=== PATIENT | male | born 1960 | race Caucasian/White ===

== ENCOUNTER → 2017-02-11 10:08 | Outpatient (CLI) | payer MEDICARE ==
--- NOTE | 2017-02-22 12:15 | EC ---
PATIENT:SHELBI COPELAND DATE OF SERVICE: 02/11/17 SEX: M MEDICAL RECORD: [id number] DATE OF : 64 LOCATION:[facility] AGE OF PATIENT: 56 ADMISSION DATE: 02/11/17 REFERRING PHYSICIAN: INTERPRETING PHYSICIAN: SINGH ARAIZA MD ECHOCARDIOGRAM REPORT ECHO CHARGES 4 ECHO COMPLETE CLINICAL DIAGNOSIS: HTN/EDEMA ECHOCARDIOGRAPHIC MEASUREMENTS (adult normal given) AC root (d.<3.7cm) 3.3 cm LV Septum d (<1.2 cm> 1.8 cm Valve Excursion 1.4 cm LV Septum (systole) 2.5 cm Left Atria (s.<4.0cm> 3.6 cm LVPW d(<1.2cm) 1.7 cm RV (d.<2.3cm) 2.5 cm LVPW (sytole) 2.2 cm LV diastole(<5.6CM) 4.6 cm MV E-F(>70mm/sec) cm LV systole 2.3 cm LVOT Diameter 2.3 cm MV exc.(>10mm) cm Est.ejection fraction (50-75%) % Pericardial Effusion N DOPPLER: LVIT cm/sec A 113 cm/sec E 87.0 cm/sec LA cm/sec RVSP 29.3 mmHg LVOT 140 cm/sec AOP1/2T m/s Asc. Ao 159 cm/sec RVOT 146 cm/sec RA cm/sec PA 118 cm/sec AV Gradient Peak 10.2 mmHg AV Mean 5.6 mmHg AV Area 3.7 cm MV Gradient Peak 4.6 mmHg MV Mean 2.0 mmHg MV Area cm COMMENTS: Casket Inspector: David OLIVEROE Surveyor Instrument Assistant: Chente Loja TAPE# PACS DATE OF SERVICE: 02/11/2017 FINDINGS: 1. Left ventricular chamber size is within normal limits. Left ventricular systolic function is normal. Overall ejection fraction 55%-60%. 2. Left atrium, right atrium, and right ventricular chamber sizes are within normal limits. 3. Valvular structures have normal structure and motion. 4. Doppler interrogation reveals only mild mitral regurgitation, fobnv-ne-zqqh tricuspid regurgitation. No other valvular insufficiency or stenosis. ECHOCARDIOGRAM REPORT [id number] SHELBI COPELAND Pulmonary systolic pressure is normal at 29 mmHg. 5. No evidence of pericardial effusion or left ventricular thrombus. TRANSINT:[id number] Voice Confirmation ID: [id number] DOCUMENT ID: [id number] SINGH ARAIZA MD at 1215 CC: ALICIA AYALA DO [id number] DICTATION DATE: 02/16/17 1147 KNOWLEDGE MANAGEMENT CONSULTANT: 02/16/17 1255 DEP CLI 02/11/17 [place] [id number] [place] [id number]
== END | disposition home or self-care (01) ==
LOC: D.ECHO 10:08
DX: I10 Essential (primary) hypertension (principal); R60.9 Edema, unspecified

== ENCOUNTER → 2017-09-20 08:04 | Outpatient (CLI) | payer MEDICARE | END | disposition home or self-care (01) | LOC: D.US 08:04 | DX: D63.1 Anemia in chronic kidney disease (principal); I12.9 Hypertensive chronic kidney disease with stage 1 through stage 4 chronic kidney disease, or unspecified chronic kidney disease; N18.4 Chronic kidney disease, stage 4 (severe) ==

== ENCOUNTER → 2017-10-03 14:29 | Outpatient (CLI) | payer MEDICARE | END | disposition home or self-care (01) | LOC: D.CT 14:29 | DX: N28.1 Cyst of kidney, acquired (principal) ==

== ENCOUNTER → 2017-10-07 09:17 | Outpatient (CLI) | payer MEDICARE ==
--- NOTE | ~2017-10-07 | EC ---
PATIENT:SHELBI COPELAND DATE OF SERVICE: 10/07/17 SEX: M MEDICAL RECORD: [id number] DATE OF : 64 LOCATION[facility] AGE OF PATIENT: 57 ADMISSION DATE: 10/07/17 REFERRING PHYSICIAN: INTERPRETING PHYSICIAN: SINGH JEAN MD ECHOCARDIOGRAM REPORT ECHO CHARGES 4 ECHO COMPLETE Date: 10/07 CLINICAL DIAGNOSIS: PERICARDIAL EFFUSION ECHOCARDIOGRAPHIC MEASUREMENTS (adult normal given) AC root (d.<3.7cm) 3.7 cm LV Septum d (<1.2 cm> 2.0 cm Valve Excursion 2.5 cm LV Septum (systole) 2.7 cm Left Atria (s.<4.0cm> 4.8 cm LVPW d(<1.2cm) 1.6 cm RV (d.<2.3cm) 2.5 cm LVPW (sytole) 2.5 cm LV diastole(<5.6CM) 5.1 cm MV E-F(>70mm/sec) cm LV systole 2.2 cm LVOT Diameter 2.3 cm MV exc.(>10mm) cm Est.ejection fraction (50-75%) % DOPPLER: LVIT cm/sec A 80.0 cm/sec E 101 cm/sec LA cm/sec RVSP 35.2 mmHg LVOT 136 cm/sec AOP1/2T m/s Asc. Ao 154 cm/sec RVOT 117 cm/sec RA cm/sec PA 114 cm/sec AV Gradient Peak 9.5 mmHg AV Mean 5.0 mmHg AV Area 2.6 cm MV Gradient Peak 4.7 mmHg MV Mean 1.8 mmHg MV Area cm COMMENTS: Office Support Assistant: David BLANCO [place] Fee Clerk: 1 Dr. Jean TAPE# PACS Pericardial Effusion Y DATE OF SERVICE: 10/07/2017 PROCEDURE: Echocardiogram. FINDINGS: 1. Left ventricular chamber size is within normal limits. Left ventricular systolic function is normal. Overall ejection fraction estimated 60% to 65%. 2. Left atrium is enlarged at 4.3 cm. Right atrium and right ventricular chamber sizes are as well mildly dilated. 3. Valvular structures have normal structure and motion. ECHOCARDIOGRAM REPORT [id number] SHELBI COPELAND 4. Doppler interrogation reveals vfhi-xh-rcbdwbah aortic insufficiency, mild mitral regurgitation, no other valvular insufficiency or stenosis and pulmonary systolic pressure is estimated 35 mmHg. 5. A small pericardial effusion is present, but this is not hemodynamically significant and not hemodynamically compromising. 6. No evidence of left ventricular thrombus. TRANSINT:[id number] Voice Confirmation ID: [id number] DOCUMENT ID: [id number] SINGH JEAN MD at 1816 CC: [id number] DICTATION DATE: 10/07/17 1233 FOOD SERVICE CLERK: 10/07/17 1251 [facility] [address] [place] [place] [id number]
== END | disposition home or self-care (01) ==
LOC: D.ECHO 09:17
DX: I31.3 Pericardial effusion (noninflammatory) (principal)

== ENCOUNTER 2018-03-10 05:24 | Day surgery (SDC) | payer MEDICARE ==
[~2018-03-10] VITALS: Ht 190.5 cm; Wt 124.7 kg
[2018-03-10 05:48] LABS: APTT 28.2 SECONDS (22.8-39.4); INR 1.05 (0.85-1.17); PROTIME 13.2 SECONDS (11.6-15.0)
[2018-03-10 06:08] LABS: ANION GAP 17.1 mmol/L (8-16); CALCIUM 7.4 mg/dL (8.5-10.1); CARBON DIOXIDE 22.2 mmol/L (21.0-32.0); POTASSIUM - SERUM 4.3 mmol/L (3.5-5.1)
[2018-03-10] MEDS ORDERED: CATAPRES0.2 MG PO (06:19)
[2018-03-10] MEDS ORDERED: METOLAZONE5 MG PO (06:20)
[2018-03-10] MEDS ORDERED: CARDURA8 MG PO (06:21)
[2018-03-10] MEDS ORDERED: NORVASC5 MG PO (06:21)
[2018-03-10] MEDS ORDERED: LIPITOR20 MG PO (06:21)
[2018-03-10] MEDS ORDERED: BUMEX2 MG PO (06:21)
[2018-03-10] MEDS ORDERED: ROCALTROL0.25 MCG PO (06:22)
[2018-03-10] MEDS ORDERED: PRINIVIL20 MG PO (06:23)
[2018-03-10] MEDS ORDERED: METOPROLOL TART50 MG PO (06:23)
[2018-03-10 06:43] VITALS: Ht 190.5 cm; Wt 124.7 kg
[2018-03-10 06:58] LABS: BASOPHILS 0.3 % (0-2); EOSINOPHILS 4.1 % (0-7); HEMOGLOBIN 9.3 g/dL (13.5-17.5); IMMATURE GRANULOCYTES 0.2 % (0-5); LYMPHOCYTES 21.6 % (15-50); MCHC 34.4 g/dL (31.0-37.0); MCV 101.5 fL (80.0-100.0); MEAN PLATELET VOLUME 10.9 fL (7.4-10.4); MONOCYTES 9.5 % (2-11); NEUTROPHILS 64.3 % (40-80); PLATELET COUNT 129 10x3/uL (130-400); RBC 2.66 10x6/uL (4.20-6.10); RDW 11.9 % (11.5-14.5); WBC 6.1 10x3/uL (4.8-10.8)
--- NOTE | 2018-03-10 10:39 | NUR ---
DR ZHAO AT BEDSIDE. NO THRILL OR BRUIT NOTED. DOPPLER SIGNAL WAS HEARD.
--- NOTE | 2018-03-10 10:50 | NUR ---
REC'D FROM RR. FAMILY AT BEDSIDE. PACU NURSE REPORTS DR ZHAO IS AWARE THE BRUIT IS DETECTABLE ONLY WITH A DOPPLER. ICE WATER BROUGHT TO PT.
--- NOTE | 2018-03-10 11:20 | NUR ---
MANUELA COWAN BROUGHT TO PT. FAMILY AT BEDSIDE.
--- NOTE | 2018-03-10 11:50 | NUR ---
TOLERATED DIET. IV DC'D WITH CATHETER INTACT.
--- NOTE | 2018-03-10 12:10 | NUR ---
WRITTEN AND VERBAL DC INST GIVEN TO PT. VERBALIZED UNDERSTANDING.
--- NOTE | 2018-03-10 12:10 | NUR ---
DC'D HOME WITH FAMILY VIA PRIVATE VEHICLE. TAKEN TO VEHICLE VIA WC. STABLE AT TIME OF DC.
--- NOTE | 2018-03-16 09:29 | OP ---
PATIENT NAME: SHELBI LINDO MEDICAL RECORD: [id number] :64 LOCATION[facility] ADMISSION DATE: SURGEON: SHELBI ZHAO MD DATE OF OPERATION: 03/10/2018 REFERRING PHYSICIAN: Bhupinder Cheung MD PRIMARY CARE PHYSICIAN: Tanner Mckeon DO PREOPERATIVE DIAGNOSES: CKD V and hypertension. POSTOPERATIVE DIAGNOSES: CKD V and hypertension. OPERATION PERFORMED: Creation of a left wrist radiocephalic Tate AV fistula. SURGEON: Shelbi Zhao MD ANESTHESIA: General with LMA per [employer] DISPATCHER. PREOPERATIVE NOTE: Mr. Lindo is a very nice 57-year-old white male patient from [place], who has worsening renal failure and is expected to require dialysis. He was referred by Dr. Cheung for creation of a dialysis access. He is right handed. His preop vein mapping by ultrasound indicated satisfactory veins in the left arm for most likely brachiocephalic fistula. He is brought to the hospital as an outpatient for that procedure today. DESCRIPTION OF PROCEDURE: Under general anesthesia in supine position, the patient was prepped and draped in a sterile manner. A Yaneli drain was used as a proximal tourniquet and nitroglycerin paste was applied to the skin of the forearm and arm. Duplex ultrasound was then performed, which revealed a very nice cephalic vein from a deltopectoral grooved to the wrist. The radial artery did not have any calcifications nor did the brachial. I elected to go ahead with creation of a wrist brachiocephalic fistula. A longitudinal incision was made in the cephalic vein and radial artery were isolated and controlled with Silastic loops and occluded as needed with vascular clamps. The vein with a very good caliber about 4-5 mm in diameter. It was ligated distally with Vicryl and then transected and bevelled. It was flushed with heparinized saline and hydrostatically dilated with the same. The vein was then flushed with heparin solution. The artery was opened and flushed proximally and distally with heparinized saline and an end-to-side anastomosis, end of vein to side of radial artery was performed with running 7-0 Prolene. When this was completed, the occluding loops and clamps were released, excellent flow developed in the fistula and proximal radial artery, but there was no flow in the radial artery distal to the anastomosis. Doppler exam demonstrated a very robust pulsatile signal from the ulnar artery at the wrist and in the palmar arch. I made a small venotomy in the cephalic vein just above the arterial anastomosis and used a 3-Dominican Reji embolectomy catheter through that to remove some thrombus and restore inflow from the distal radial artery. The patient was also given 2000 units of heparin and the vessels again flushed with heparinized saline. The venotomy was then closed with horizontal mattress suture of 7-0 Prolene. With release of the occluding loops, flow was reestablished within the fistula, but I found that the proximal radial artery was occluded. This was handled in a similar manner with OPERATIVE REPORT [id number] SHELBI LINDO pentecostalism of the arterial inflow, but apparently thrombosed had formed in the cephalic vein. I took down the anastomosis totally I excised the end of the vein and again shortening and beveling it. It was distended and flushed again with heparinized saline. The vein cuff was removed with entirely from the arteriotomy. The artery was gently dilated with a 3 mm dilator proximally. Thrombus was removed with the passage with the 3-Dominican Reji embolectomy catheter. The artery was again flushed proximally and distally with heparinized saline. The anastomosis was repeated with continuous running 7-0 Prolene. The suture line was found to be hemostatic and initially there was good flow in the fistula. The wound was irrigated and infiltrated with 0.25% Marcaine without epinephrine and wound closure begun with 3-0 Vicryl. It was noted that the Doppler flow with the fistula was diminished when the skin closure was completed, but the patient's blood pressure was still below his preop levels. Hopefully, this will improve as his blood pressure rises. The wound was sealed and closure completed with Dermabond glue. It was dressed with Cavilon skin prep, Tegaderm, and Maxorb AG. The patient was totally awakened and taken to the recovery room. In the recovery room with the blood pressure about 108 systolic, flow in the fistula was very poor and difficult to palpate and there was poor Doppler flow signal. The patient may have some degree of thrombophilia, also spasm in the radial artery proximal and distal to the anastomosis despite the use of topical papaverine, probably played a role in the difficulties with his fistula. PLAN: The patient will go home today with a prescription for [place] and an appointment to return to see me in my office on Tuesday03/20/2018. If the fistula does fail, he will be rescheduled for a brachiocephalic fistula. Blood loss was about 10 cc at most. All sponges, instruments and needles were accounted for. No drain was used and no surgical specimen was submitted for histopathology. TRANSINT:[id number] Voice Confirmation ID: [id number] DOCUMENT ID: [id number] SHELBI ZHAO MD at 0929 CC: BHUPINDER CHEUNG MD [id number] DICTATION DATE: 03/10/18 1101 CLINICAL IMMUNOLOGIST: 03/10/18 1257 [facility] 03/10/18 [facility] [address] [place] [address]
== END 2018-03-10 12:10 | disposition home or self-care (01) ==
LOC: D.OPS 05:24
PROVIDERS: Surgery
DX: I12.0 Hypertensive chronic kidney disease with stage 5 chronic kidney disease or end stage renal disease (principal); N18.5 Chronic kidney disease, stage 5; Z99.2 Dependence on renal dialysis; Z01.812 Encounter for preprocedural laboratory examination

== ENCOUNTER 2018-12-30 20:33 | Inpatient (IN) | payer MEDICARE ==
[~2018-12-30] VITALS: Ht 190.5 cm; Wt 114.5 kg
[~2018-12-30 20:33] MED LIST: BUMEX2 MG PO; CARDURA8 MG PO; CATAPRES0.2 MG PO; LIPITOR20 MG PO; METOLAZONE5 MG PO; METOPROLOL TART50 MG PO; NORVASC5 MG PO; PRINIVIL20 MG PO; ROCALTROL0.25 MCG PO
[2018-12-30] MEDS ORDERED: METOPROLOL TART50 MG PO (20:38)
[2018-12-30] MEDS ORDERED: CARDURA8 MG PO (20:39)
[2018-12-30] MEDS ORDERED: PRINIVIL20 MG PO (20:40)
[2018-12-30] MEDS ORDERED: SODIUM BICARBO650 MG PO (20:40)
[2018-12-30 20:50] VITALS: BP 138/89
[2018-12-30 21:10] LABS: BASOPHILS 0 % (0-2); EOSINOPHILS 0 % (0-7); HEMATOCRIT 22.7 % (42.0-54.0); IMMATURE GRANULOCYTES 15.5 % (0-5); LYMPHOCYTES 4.3 % (15-50); MCH 32.3 pg (26.0-34.0); MCHC 32.2 g/dL (31.0-37.0); MCV 100.4 fL (80.0-100.0); MONOCYTES 5.8 % (2-11); NEUTROPHILS 74.4 % (40-80); RBC 2.26 10x6/uL (4.20-6.10); RDW 15.7 % (11.5-14.5)
[2018-12-30 21:25] LABS: CALC OSMOLALITY 296 mosm/kg (275-300); CALCIUM 8.7 mg/dL (8.5-10.1); CARBON DIOXIDE 17.9 mmol/L (21.0-32.0); CHLORIDE - SERUM 101 mmol/L (98-107); CREATININE - SERUM 9.5 mg/dL (0.6-1.3); GLUCOSE 84 mg/dL (74-106); POTASSIUM - SERUM 4.8 mmol/L (3.5-5.1); SODIUM 132 mmol/L (136-145); UREA NITROGEN 104 mg/dL (7-18); eGFR NON AFRICAN AMERICAN 6 mL/min (90-120)
[2018-12-30 21:30] VITALS: BP 152/64
[2018-12-30 21:39] LABS: HEMOGLOBIN 7.3 g/dL (13.5-17.5); PLATELET COUNT 72 10x3/uL (130-400)
[2018-12-30 21:55] LABS: ALT (SGPT) 48 U/L (10-68)
[2018-12-30 21:56] LABS: ALBUMIN 0.7 g/dL (3.4-5.0); ALKALINE PHOSPHATASE 118 U/L (46-116); BILIRUBIN - TOTAL 0.49 mg/dL (0.2-1.3); CKMB 26.1 U/L (0.0-3.6); CREATINE KINASE 1520 UL (21-232); PROTEIN - SERUM 4.4 g/dL (6.4-8.2)
[2018-12-30 21:58] LABS: TROPONIN-I 5.062 ng/mL (0.000-0.060)
[2018-12-30 22:00] VITALS: BP 140/89
[2018-12-30 22:17] LABS: APPEARANCE CLEAR (CLEAR); BILIRUBIN NEGATIVE (NEGATIVE); COLOR YELLOW (YELLOW); GLUCOSE 100 mg/dL (NEGATIVE); KETONE NEGATIVE (NEGATIVE); NITRITE NEGATIVE (NEGATIVE); PROTEIN 3+ mg/dL (NEGATIVE); SPECIFIC GRAVITY 1.015 (1.005-1.020); UROBILINOGEN NORMAL (NORMAL)
[2018-12-30 22:18] LABS: BACTERIA FEW /hpf (NEGATIVE); EPITHELIAL CELLS 0-5 /hpf (0-5); RED CELLS - URINE 0-5 /hpf (0-5); WHITE CELLS - URINE 0-5 /hpf (NEGATIVE)
[2018-12-30 22:19] LABS: PRO BNP 155075 pg/mL (0-125)
[2018-12-30 22:30] VITALS: BP 134/84
[2018-12-30 22:36] LABS: PLATELET ESTIMATE DECREASED
[2018-12-30 22:45] VITALS: BP 140/73
[2018-12-30 23:15] VITALS: BP 125/77
[2018-12-31] VITALS (12 sets, daily range): BP systolic 113–149; BP diastolic 59–99; Ht 190.5 cm; Wt 114.5 kg
[2018-12-31 02:34] LABS: BASOPHILS 0 % (0-2); EOSINOPHILS 0 % (0-7); IMMATURE GRANULOCYTES 12.3 % (0-5); LYMPHOCYTES 3.7 % (15-50); MCH 33.2 pg (26.0-34.0); MCHC 32.9 g/dL (31.0-37.0); MEAN PLATELET VOLUME 12.1 fL (7.4-10.4); MONOCYTES 7.5 % (2-11); NEUTROPHILS 76.5 % (40-80); PLATELET COUNT 58 10x3/uL (130-400); RBC 2.08 10x6/uL (4.20-6.10); RDW 15.7 % (11.5-14.5); WBC 3.7 10x3/uL (4.8-10.8)
[2018-12-31 02:46] LABS: HEMOGLOBIN 6.9 g/dL (13.5-17.5)
[2018-12-31 03:09] LABS: ANION GAP 16.7 mmol/L (8-16); CALCIUM 8.6 mg/dL (8.5-10.1); CARBON DIOXIDE 18.1 mmol/L (21.0-32.0); CREATININE - SERUM 9.4 mg/dL (0.6-1.3); MAGNESIUM - SERUM 2.2 mg/dL (1.8-2.4); PHOSPHOROUS 8.1 mg/dL (2.5-4.9); POTASSIUM - SERUM 4.8 mmol/L (3.5-5.1); TROPONIN-I 5.581 ng/mL (0.000-0.060)
[2018-12-31 03:56] LABS: CKMB 32.4 U/L (0.0-3.6)
[2018-12-31 03:57] LABS: CREATINE KINASE 1794 UL (21-232)
[2018-12-31 13:28] LABS: BASOPHILS 0 % (0-2); EOSINOPHILS 0 % (0-7); HEMATOCRIT 23.5 % (42.0-54.0); HEMOGLOBIN 7.6 g/dL (13.5-17.5); IMMATURE GRANULOCYTES 22.1 % (0-5); LYMPHOCYTES 2.8 % (15-50); MCH 31.5 pg (26.0-34.0); MCHC 32.3 g/dL (31.0-37.0); MEAN PLATELET VOLUME 11.7 fL (7.4-10.4); MONOCYTES 3.5 % (2-11); NEUTROPHILS 71.6 % (40-80); PLATELET COUNT 60 10x3/uL (130-400); RBC 2.41 10x6/uL (4.20-6.10); RDW 17.3 % (11.5-14.5); WBC 4.3 10x3/uL (4.8-10.8)
[2018-12-31 13:31] LABS: MCV 97.5 fL (80.0-100.0)
[2018-12-31 13:42] LABS: CALCIUM 7.7 mg/dL (8.5-10.1); CARBON DIOXIDE 18.2 mmol/L (21.0-32.0); CREATININE - SERUM 9.8 mg/dL (0.6-1.3); POTASSIUM - SERUM 5.2 mmol/L (3.5-5.1)
[2018-12-31 13:56] LABS: ALBUMIN 0.7 g/dL (3.4-5.0); BILIRUBIN - DIRECT 0.44 mg/dL (0.00-0.30); BILIRUBIN - INDIRECT 0.26 mg/dL (0.00-1.00); BILIRUBIN - TOTAL 0.7 mg/dL (0.2-1.3); MAGNESIUM - SERUM 2.2 mg/dL (1.8-2.4); PHOSPHOROUS 7.7 mg/dL (2.5-4.9); PROTEIN - SERUM 3.4 g/dL (6.4-8.2); THYROID STIMULATING HORMONE 1.72 uIU/mL (0.36-3.74)
--- NOTE | 2019-01-04 13:49 | OP ---
PATIENT NAME: SHELBI COPELAND MEDICAL RECORD: [id number] :64 LOCATION:[facility] D.2305 ADMISSION DATE:12/30/18 SURGEON: FERMIN PRESSLEY MD DATE OF OPERATION: 12/31/2018 PREOPERATIVE DIAGNOSES: 1. Mamxx-sx-bcfswgq renal failure. 2. Acute mental status changes. 3. Anemia of chronic disease. 4. Hypertension. POSTOPERATIVE DIAGNOSES: 1. Oumzr-di-oxmenno renal failure. 2. Acute mental status changes. 3. Anemia of chronic disease. 4. Hypertension. PROCEDURE: Right subclavian vein IJ 15-cm Trialysis catheter placement. SURGEON: Fermin Pressley MD REPORT OF PROCEDURE: The patient's right neck was prepped and draped in sterile fashion. Using ultrasound guidance, a 5 mL of 1% lidocaine with epinephrine was infused into the surrounding tissues. A needle was then used to cannulate the right internal jugular vein under ultrasound guidance. A guidewire was then advanced with ease. Over this wire, a dilator was placed followed by the Trialysis catheter. The catheter aspirated nonpulsatile dark blood and flushed easily in all 3 ports with normal saline. This was then sutured into place with 4-0 nylons and dressed appropriately. COMPLICATIONS: None. CONDITION: Stable. ANESTHESIA: Local. BLOOD LOSS: Minimal. Procedure done at the bedside. TRANSINT:[id number] Voice Confirmation ID: [id number] DOCUMENT ID: [id number] FERMIN PRESSLEY MD at 1349 CC: [id number] DICTATION DATE: 12/31/18 1025 COOKER CASING: 12/31/18 1138 DIS IN 12/31/18 [address] [id number] [place] [address]
--- NOTE | 2019-01-09 11:40 | CN ---
PATIENT NAME:SHELBI COPELAND MEDICAL RECORD: [id number] : 64 LOCATION:[facility] ADMIT DATE: 12/30/18 ACCOUNT: [id number] CONSULTING PHYSICIAN: SINGH ARAIZA MD REFERRING PHYSICIAN: KIM REYES DO DATE OF CONSULTATION: 12/31/2018 CARDIOLOGY CONSULTATION DIAGNOSES: 1. Non-Q-wave myocardial infarction. 2. Coronary artery disease. 3. Shortness of breath, dyspnea on exertion. 4. Chest pain. 5. End-stage renal failure, acute on chronic. 6. Hypertension. 7. Hyperlipidemia. HISTORY OF PRESENT ILLNESS: This is a gentleman with no previous history of ischemic heart disease, presents with progressive shortness of breath and generalized weakness, found to have igkoq-jv-heecohf renal insufficiency and need of dialysis. He as well has an elevated troponin. His EKG has nonspecific ST-T abnormalities. PHYSICAL EXAMINATION: CONSTITUTIONAL/GENERAL APPEARANCE: Well nourished, well developed, appears stated age. EYES: Lids and conjunctivae noninjected. No discharge. No pallor. ENT: Lips within normal limit. No cyanosis. No pallor. NECK: Carotid arteries, bilateral normal upstroke. No bruits. No thrills. No jugular venous pressure or distention. CERVICAL LYMPH NODES: Nontender. Nonenlarged. THYROID: Not enlarged. No nodules. CARDIOVASCULAR: Precordial exam, nondisplaced. No heaves or pericardial thrills. Rate and rhythm, regular. Heart sounds, normal S1, normal S2. No S3, no gallop, no rub. Systolic murmur, not heard. Diastolic murmur, not heard. RESPIRATORY: Respiratory effort, unlabored. Normal curvature. No thoracic deformity. No chest wall tenderness. Percussion, resonant. Auscultation, clear. No wheezes, no rales, no rhonchi. ABDOMEN: Soft, nondistended, nontender. No abdominal pain, no vomiting and normal appetite. MUSCULOSKELETAL: No joint tenderness, normal gait, normal tone. SKIN: Warm and dry. OVERALL IMPRESSION: Non-Q-wave myocardial infarction. At this time, he is in need of dialysis as well as in need of transfusion for his anemia. After this is done today, we will evaluate from a cardiac standpoint with cardiac catheterization in the a.m. TRANSINT:[id number] Voice Confirmation ID: [id number] DOCUMENT ID: [id number] CONSULT REPORT [id number] SHELBI COPELAND JEFFREY MD at 1140 CC: [id number] DICTATION DATE: 12/31/18 1046 PHYSICIAN ASSISTANT: 12/31/18 1140 DIS IN 12/31/18 [facility] [address] [place] [id number]
== END 2018-12-31 23:12 | DRG 280 ==
LOC: D.ER 20:33 → D.M2 22:55 → D.ICU 12-31 13:16
PROVIDERS: Family Medicine; ADMIT Internal Medicine; ATTEND Internal Medicine
PROC: 05H533Z Insertion of Infusion Device into Right Subclavian Vein, Percutaneous Approach (ICD-10-PCS; principal; 2018-12-31)
PROC: 5A1935Z Respiratory Ventilation, Less than 24 Consecutive Hours (ICD-10-PCS; 2018-12-31)
PROC: 0BH17EZ Insertion of Endotracheal Airway into Trachea, Via Natural or Artificial Opening (ICD-10-PCS; 2018-12-31)
DX: I13.2 Hypertensive heart and chronic kidney disease with heart failure and with stage 5 chronic kidney disease, or end stage renal disease (principal); N18.6 End stage renal disease; I21.4 Non-ST elevation (NSTEMI) myocardial infarction; N17.9 Acute kidney failure, unspecified; I50.9 Heart failure, unspecified; Z99.2 Dependence on renal dialysis; D63.1 Anemia in chronic kidney disease